=== PATIENT | female | born 1960 | race African-American/Black ===

== ENCOUNTER 2022-03-18 19:16 | Inpatient (IN) | payer MEDICARE, MEDICAID ==
[~2022-03-18] VITALS: Ht 256.5 cm; Wt 60.8 kg
[2022-03-18] MEDS ORDERED: LEVETIRACETAM 1000MG PREMIX 100 ML IV ONE (20:00)
[2022-03-18] MEDS ORDERED: SODIUM CHLORIDE 0.9% 1,000 ML IV ONE (20:00)
[2022-03-18 21:04] LABS: BASOPHILS % 0.4 % (0.0-2.0); EOSINOPHILS % 0.2 % (0.0-5.0); HEMATOCRIT. 35.6 % (36.0-48.0); HEMOGLOBIN. 10.8 g/dL (12.0-16.0); LYMPHOCYTES % 19.8 % (20.0-50.0); MEAN CORPUSCULAR HEMOGLOBIN 26.7 pg (28.0-32.0); MEAN CORPUSCULAR VOLUME 88.5 fL (81.0-99.0); MEAN PLATELET VOLUME 11.2 fl (7.4-10.4); MONOCYTES % 5.7 % (2.0-8.0); NEUTROPHILS % 73.9 % (40.0-76.0); PLATELET 182 x1000/uL (130-400); RED BLOOD CELL COUNT 4.02 mill/uL (4.2-5.4); RED CELL DISTRIBUTION WIDTH 14.7 % (11.6-14.6)
[2022-03-18 21:59] LABS: CHLORIDE 101 mEq/L (98-107)
[2022-03-18 22:13] LABS: BETA HYDROXYBUTYRATE 2.7 mMol/L (0.0-0.3)
[2022-03-18] MEDS ORDERED: INSULIN REGULAR (HUMULIN R) 300UNITS/3ML VIAL SUBCUT ONE (23:00)
[2022-03-18] MEDS ORDERED: INSULIN REGULAR (HUMULIN R) 300UNITS/3ML VIAL IV NR (23:00)
[2022-03-18] MEDS ORDERED: INSULIN REGULAR 100U/100ML PMX 100 ML IV ONE (23:00)
[2022-03-18] MEDS ORDERED: DOCUSATE SODIUM 100MG CAPSULE PO PRN (23:15)
[2022-03-18] MEDS ORDERED: ACETAMINOPHEN 325MG TABLET PO PRN ×2 (23:15)
[2022-03-18] MEDS ORDERED: MORPHINE SULFATE 2 MG/ML CPJ (NOT FOR IM USE) IV PRN (23:15)
[2022-03-18] MEDS ORDERED: CLONIDINE 0.1MG TABLET PO PRN (23:15)
[2022-03-18] MEDS ORDERED: ACETAMINOPHEN 650MG SUPP PR PRN ×2 (23:15)
[2022-03-18] MEDS ORDERED: IPRATROPIUM/ALBUTEROL 0.5-3(2.5)MG/3ML NEB HHN PRN (23:15)
[2022-03-18] MEDS ORDERED: MAGNESIUM/ALUMINUM HYDROXIDE/SIMETHICONE 30ML UDC PO PRN (23:15)
[2022-03-18] MEDS ORDERED: GUAIFENESIN 200MG/10ML SUGAR FREE UDC PO PRN (23:15)
[2022-03-18] MEDS ORDERED: ONDANSETRON HCL 4MG/2ML INJ IV PRN (23:15)
[2022-03-19] VITALS (42 sets, daily range): BP systolic 95–181; BP diastolic 44–110
[2022-03-19] MEDS ORDERED: INSULIN REGULAR 100U/100ML PMX 100 ML IV ONE (00:15)
[2022-03-19] MEDS ORDERED: LEVETIRACETAM 250 MG in SODIUM CHLORIDE 0.9% 100 ML IV SCH (01:00)
[2022-03-19] MEDS ORDERED: DEXTROSE 50% WATER 50ML SYRINGE IV PRN (01:45)
[2022-03-19] MEDS: LACTATED RINGERS 1,000 ML IV SCH ×4 (02:25→21:17)
[2022-03-19] MEDS ORDERED: INSULIN LISPRO 100 UNITS/ML SUBCUT NR (05:30)
[2022-03-19] MEDS ORDERED: PNEUMOCOCCAL 23-VAL P-SAC VAC 0.5 ML IM ONE (05:30)
[2022-03-19 05:58] LABS: CHLORIDE 107 mEq/L (98-107)
[2022-03-19 06:02] LABS: BASOPHILS % 0.3 % (0.0-2.0); EOSINOPHILS % 0.7 % (0.0-5.0); HEMATOCRIT. 30.8 % (36.0-48.0); HEMOGLOBIN. 9.9 g/dL (12.0-16.0); LYMPHOCYTES % 21.7 % (20.0-50.0); MEAN CORPUSCULAR VOLUME 83.9 fL (81.0-99.0); MEAN PLATELET VOLUME 10.5 fl (7.4-10.4); MONOCYTES % 8.4 % (2.0-8.0); NEUTROPHILS % 68.9 % (40.0-76.0); PLATELET 172 x1000/uL (130-400); RED BLOOD CELL COUNT 3.67 mill/uL (4.2-5.4); RED CELL DISTRIBUTION WIDTH 14.8 % (11.6-14.6)
[2022-03-19 06:14] LABS: CREATINE KINASE 66 IU/L (26-192); HDL CHOLESTEROL 65 mg/dL (40-59); LDL CHOLESTEROL 52 mg/dL (5-100)
[2022-03-19] MEDS: INSULIN LISPRO 100 UNITS/ML SUBCUT SCH ×4 (08:20→21:15)
[2022-03-19] MEDS: BLOOD SUGAR DIAGNOSTIC STRIP TEST SCH ×4 (09:00→21:15)
[2022-03-19] MEDS ORDERED: INSULIN GLARGINE 100 UNITS/ML SUBCUT SCH (10:00)
[2022-03-19] MEDS: INSULIN GLARGINE 100 UNITS/ML SUBCUT SCH ×2 (10:15→21:16)
[2022-03-19] MEDS: LEVETIRACETAM 250 MG in SODIUM CHLORIDE 0.9% 100 ML IV SCH ×2 (13:18→21:12)
[2022-03-20] VITALS: BP 138/77
[2022-03-20 04:00] VITALS: BP 139/62
[2022-03-20] MEDS: BLOOD SUGAR DIAGNOSTIC STRIP TEST SCH ×4 (05:49→20:24)
[2022-03-20] MEDS: INSULIN LISPRO 100 UNITS/ML SUBCUT SCH ×4 (05:49→20:25)
[2022-03-20] MEDS: LACTATED RINGERS 1,000 ML IV SCH (05:50)
[2022-03-20 06:59] LABS: BASOPHILS % 0.3 % (0.0-2.0); EOSINOPHILS % 1.5 % (0.0-5.0); LYMPHOCYTES % 33.3 % (20.0-50.0); MEAN CORPUSCULAR HEMOGLOBIN 27.3 pg (28.0-32.0); MEAN CORPUSCULAR VOLUME 82.1 fL (81.0-99.0); MEAN PLATELET VOLUME 10.5 fl (7.4-10.4); MONOCYTES % 5.5 % (2.0-8.0); NEUTROPHILS % 59.4 % (40.0-76.0); PLATELET 177 x1000/uL (130-400); RED BLOOD CELL COUNT 3.65 mill/uL (4.2-5.4); RED CELL DISTRIBUTION WIDTH 14.7 % (11.6-14.6)
[2022-03-20 07:28] LABS: CHLORIDE 117 mEq/L (98-107)
[2022-03-20 08:00] VITALS: BP 129/60
[2022-03-20] MEDS: LEVETIRACETAM 250 MG in SODIUM CHLORIDE 0.9% 100 ML IV SCH ×2 (09:00→20:40)
[2022-03-20] MEDS: INSULIN GLARGINE 100 UNITS/ML SUBCUT SCH ×2 (10:00→21:43)
[2022-03-20 12:00] VITALS: BP 115/70
[2022-03-20 16:00] VITALS: BP 125/75
[2022-03-20] MEDS: DEXTROSE 5% WATER 1,000 ML IV SCH (19:23)
[2022-03-20 20:00] VITALS: BP 168/65
[2022-03-20] MEDS: HALOPERIDOL LACTATE 5MG/ML VIAL IM PRN (20:55)
[2022-03-20] MEDS ORDERED: NALOXONE HCL 0.4MG/ML VIAL IV PRN (21:30)
[2022-03-20] MEDS ORDERED: LORAZEPAM 1MG TABLET PO NR (21:30)
[2022-03-21] VITALS: BP 154/54
[2022-03-21 04:00] VITALS: BP 149/88
[2022-03-21] MEDS: BLOOD SUGAR DIAGNOSTIC STRIP TEST SCH ×4 (04:39→20:41)
[2022-03-21] MEDS: INSULIN LISPRO 100 UNITS/ML SUBCUT SCH ×5 (04:40→20:41)
[2022-03-21] MEDS: HALOPERIDOL LACTATE 5MG/ML VIAL IM PRN (05:21)
[2022-03-21 06:20] LABS: CHLORIDE 107 mEq/L (98-107)
[2022-03-21 06:33] LABS: BASOPHILS % 0.4 % (0.0-2.0); EOSINOPHILS % 0.7 % (0.0-5.0); HEMATOCRIT. 31.9 % (36.0-48.0); HEMOGLOBIN. 10.2 g/dL (12.0-16.0); LYMPHOCYTES % 26.8 % (20.0-50.0); MEAN CORPUSCULAR HEMOGLOBIN 26.5 pg (28.0-32.0); MEAN CORPUSCULAR VOLUME 83.2 fL (81.0-99.0); MEAN PLATELET VOLUME 10.1 fl (7.4-10.4); MONOCYTES % 7.4 % (2.0-8.0); NEUTROPHILS % 64.7 % (40.0-76.0); PLATELET 138 x1000/uL (130-400); RED BLOOD CELL COUNT 3.84 mill/uL (4.2-5.4); RED CELL DISTRIBUTION WIDTH 14.7 % (11.6-14.6)
[2022-03-21 08:00] VITALS: BP 144/66
[2022-03-21] MEDS: LEVETIRACETAM 250 MG in SODIUM CHLORIDE 0.9% 100 ML IV SCH ×2 (09:57→20:48)
[2022-03-21] MEDS: INSULIN GLARGINE 100 UNITS/ML SUBCUT SCH ×3 (09:58→22:23)
[2022-03-21] MEDS: DEXTROSE 5% WATER 1,000 ML IV SCH (11:15)
[2022-03-21 12:00] VITALS: BP 120/65
[2022-03-21 16:00] VITALS: BP 130/87
[2022-03-21 20:00] VITALS: BP 156/60
[2022-03-21] MEDS ORDERED: INSULIN GLARGINE 100 UNITS/ML SUBCUT SCH (22:00)
[2022-03-22] VITALS: BP 133/73
[2022-03-22] MEDS ORDERED: HALOPERIDOL LACTATE 5MG/ML VIAL IM NR (00:15)
[2022-03-22 04:00] VITALS: BP 128/65
[2022-03-22] MEDS: INSULIN LISPRO 100 UNITS/ML SUBCUT SCH ×2 (06:07→12:03)
[2022-03-22] MEDS: BLOOD SUGAR DIAGNOSTIC STRIP TEST SCH ×2 (06:07→12:03)
[2022-03-22 08:00] VITALS: BP 112/60
[2022-03-22] MEDS ORDERED: RISPERIDONE 0.5MG TABLET PO SCH (09:00)
[2022-03-22] MEDS: LEVETIRACETAM 250 MG in SODIUM CHLORIDE 0.9% 100 ML IV SCH (09:23)
[2022-03-22] MEDS: INSULIN GLARGINE 100 UNITS/ML SUBCUT SCH (09:24)
[2022-03-22 10:47] VITALS: BP 112/66
== END 2022-03-22 12:45 | DRG 637 ==
LOC: ER 19:16 → CVICU 22:29 → EDBEDREQSVC 23:00 → EDBEDREQ 23:00 → EDBEDREQTM 23:00 → ENRESERV 03-19 00:24 → 8WST 03-19 22:50
PROVIDERS: ADMIT Family Medicine Adult Medicine; ATTEND Family Medicine Adult Medicine
DX: E10.10 Type 1 diabetes mellitus with ketoacidosis without coma (principal); G93.41 Metabolic encephalopathy; E87.0 Hyperosmolality and hypernatremia; D64.9 Anemia, unspecified; G40.409 Other generalized epilepsy and epileptic syndromes, not intractable, without status epilepticus; I10 Essential (primary) hypertension; I25.10 Atherosclerotic heart disease of native coronary artery without angina pectoris; F03.90 Unspecified dementia, unspecified severity, without behavioral disturbance, psychotic disturbance, mood disturbance, and anxiety; E10.69 Type 1 diabetes mellitus with other specified complication; R13.10 Dysphagia, unspecified; F41.9 Anxiety disorder, unspecified; H02.402 Unspecified ptosis of left eyelid; S02.2XXA Fracture of nasal bones, initial encounter for closed fracture; W06.XXXA Fall from bed, initial encounter; Y92.238 Other place in hospital as the place of occurrence of the external cause; Y93.89 Activity, other specified; Y99.8 Other external cause status; I69.331 Monoplegia of upper limb following cerebral infarction affecting right dominant side; Z87.891 Personal history of nicotine dependence; Z89.511 Acquired absence of right leg below knee
CPT/HCPCS: 36415; 70486; 70551; 71045; 80048; 80053; 80061; 82010; 82550; 82962; 83036; 83605; 83735; 84443; 84484; 85025; 92610; 93005; 97162; 97165; 97530; 99285; J1630; J1815; J1953; J2270; J7030; J7050; J7070; J7120